=== PATIENT | male | born 1975 | race Caucasian/White ===

== ENCOUNTER 2020-11-11 16:25 | Inpatient (IN) | payer SELFPAY ==
[~2020-11-11] VITALS: Ht 167.6 cm; Wt 71.3 kg
[2020-11-11 16:27] VITALS: Ht 167.6 cm; Wt 71.3 kg
[2020-11-11 17:20] LABS: BASOPHIL % 0.2 % (0.2-1.5); RED CELL DISTRIBUTION WIDTH 14.1 % (12.1-16.2)
[2020-11-11 17:26] LABS: PLATELET COUNT 522 x10^3mcL (152-348)
[2020-11-11 17:36] LABS: CALCIUM 9.3 mg/dL (8.5-10.1); CARBON DIOXIDE 28.2 mmol/L (21-32); CHLORIDE SERUM 102 mmol/L (98-107); CREATININE SERUM 0.9 mg/dL (0.7-1.3); GFR1 > 60 mL/min; GLUCOSE SERUM 113 mg/dL (74-106); POTASSIUM SERUM 4.2 mmol/L (3.5-5.1); SODIUM SERUM 141 mmol/L (136-145)
[2020-11-11 17:40] LABS: ALKALINE PHOSPHATASE 173 U/L (46-116); ALT/SGPT 380 U/L (16-63); AST/SGOT 186 U/L (15-37); LACTIC DEHYDROGENASE (LDH) 368 U/L (100-190); TOTAL PROTEIN, SERUM 8.1 g/dL (6.4-8.2)
[2020-11-11 17:41] LABS: ALBUMIN 2.7 g/dL (3.4-5.0); C REACTIVE PROTEIN 15.7 mg/dL (<=0.9)
[2020-11-11 19:39] LABS: UA SPECIFIC GRAVITY 1.025 (1.005-1.035); microscopic required? YES; urine erythrocyte NEGATIVE (NEGATIVE)
[2020-11-11 21:19] VITALS: BP 135/91
[2020-11-11 22:12] LABS: T3 TOTAL 1.3 ng/mL
[2020-11-11 22:17] LABS: FREE T4 1.27 ng/dL (0.76-1.46); FREE THYROXINE INDEX 3.4 ug/dL (1.4-4.5); T4(THYROXINE) 9.2 ug/dL (4.7-13.3)
[2020-11-11 22:18] LABS: CHOLESTEROL/HDL RATIO 6.4; MAGNESIUM 2.3 mg/dL (1.8-2.4); PHOSPHOROUS 3.3 mg/dL (2.5-4.9)
[2020-11-12 01:01] VITALS: BP 116/80
[2020-11-12 05:46] VITALS: BP 92/77
[2020-11-12 08:46] VITALS: BP 112/71
[2020-11-12 12:13] VITALS: BP 115/72
[2020-11-12 16:36] VITALS: BP 109/59
[2020-11-12 21:56] VITALS: BP 111/78
[2020-11-13 06:20] VITALS: BP 111/76
[2020-11-13 06:35] LABS: BASOPHIL % 0.3 % (0.2-1.5); RED CELL DISTRIBUTION WIDTH 13.9 % (12.1-16.2)
[2020-11-13 08:54] VITALS: BP 112/75
[2020-11-13 10:45] LABS: BILIRUBIN DIRECT 0.23 mg/dL (0.0-0.2); BILIRUBIN TOTAL 0.8 mg/dL (0.20-1.00); TOTAL PROTEIN, SERUM 7.9 g/dL (6.4-8.2)
[2020-11-13 11:01] LABS: ALBUMIN 2.8 g/dL (3.4-5.0)
[2020-11-13 12:13] VITALS: BP 109/68
[2020-11-13 13:03] LABS: PLATELET COUNT 632 x10^3mcL (152-348)
[2020-11-13 13:05] LABS: CALCIUM 9.7 mg/dL (8.5-10.1); CARBON DIOXIDE 19.6 mmol/L (21-32); CHLORIDE SERUM 104 mmol/L (98-107); CREATININE SERUM 0.9 mg/dL (0.7-1.3); GFR1 > 60 mL/min; GLUCOSE SERUM 64 mg/dL (74-106); SODIUM SERUM 144 mmol/L (136-145)
[2020-11-13 16:56] VITALS: BP 107/72
[2020-11-13 20:38] LABS: BILIRUBIN DIRECT 0.19 mg/dL (0.0-0.2); BILIRUBIN TOTAL 0.6 mg/dL (0.20-1.00); TOTAL PROTEIN, SERUM 8.1 g/dL (6.4-8.2)
[2020-11-13 20:42] LABS: ALBUMIN 2.8 g/dL (3.4-5.0)
[2020-11-13 21:12] VITALS: BP 116/81
[2020-11-14 05:50] VITALS: BP 107/69
[2020-11-14 06:25] LABS: CALCIUM 8.9 mg/dL (8.5-10.1); CARBON DIOXIDE 28.3 mmol/L (21-32); CHLORIDE SERUM 100 mmol/L (98-107); GFR1 > 60 mL/min; GLUCOSE SERUM 141 mg/dL (74-106); MAGNESIUM 2.1 mg/dL (1.8-2.4); PHOSPHOROUS 3.4 mg/dL (2.5-4.9); POTASSIUM SERUM 3.8 mmol/L (3.5-5.1); SODIUM SERUM 136 mmol/L (136-145)
[2020-11-14 06:33] LABS: BASOPHIL % 0.1 % (0.2-1.5); RED CELL DISTRIBUTION WIDTH 13.8 % (12.1-16.2)
[2020-11-14 09:00] VITALS: BP 113/73
[2020-11-14 13:00] VITALS: BP 123/86
[2020-11-14 13:16] LABS: PLATELET COUNT 589 x10^3mcL (152-348)
[2020-11-14 16:51] VITALS: BP 104/63
[2020-11-14 22:08] VITALS: BP 118/76
[2020-11-15 06:54] VITALS: BP 104/63
[2020-11-15 07:27] LABS: BASOPHIL % 0.1 % (0.2-1.5); RED CELL DISTRIBUTION WIDTH 13.7 % (12.1-16.2)
[2020-11-15 08:05] LABS: PLATELET COUNT 625 x10^3mcL (152-348)
[2020-11-15 08:08] VITALS: BP 106/62
[2020-11-15 08:10] LABS: CALCIUM 8.2 mg/dL (8.5-10.1); CARBON DIOXIDE 25.6 mmol/L (21-32); CHLORIDE SERUM 103 mmol/L (98-107); CREATININE SERUM 0.8 mg/dL (0.7-1.3); GFR1 > 60 mL/min; GLUCOSE SERUM 93 mg/dL (74-106); MAGNESIUM 2.1 mg/dL (1.8-2.4); PHOSPHOROUS 3.1 mg/dL (2.5-4.9); SODIUM SERUM 138 mmol/L (136-145)
[2020-11-15 08:21] LABS: BILIRUBIN DIRECT 0.2 mg/dL (0.0-0.2); BILIRUBIN TOTAL 0.55 mg/dL (0.20-1.00); C REACTIVE PROTEIN 2.1 mg/dL (<=0.9); TOTAL PROTEIN, SERUM 6.4 g/dL (6.4-8.2)
[2020-11-15 09:05] LABS: ALBUMIN 2.6 g/dL (3.4-5.0)
[2020-11-15 12:27] VITALS: BP 101/64
[2020-11-15 21:28] VITALS: BP 107/74
[2020-11-16 06:11] VITALS: BP 102/65
[2020-11-16 10:19] VITALS: BP 108/77
[2020-11-16 12:13] VITALS: BP 120/78
[2020-11-16 17:29] VITALS: BP 102/65
[2020-11-16 22:06] VITALS: BP 101/64
[2020-11-17 06:38] VITALS: BP 107/67
[2020-11-17 07:49] LABS: RED CELL DISTRIBUTION WIDTH 14.1 % (12.1-16.2)
[2020-11-17 09:00] VITALS: BP 111/71
[2020-11-17 09:16] LABS: CALCIUM 8.9 mg/dL (8.5-10.1); CARBON DIOXIDE 28.7 mmol/L (21-32); CHLORIDE SERUM 101 mmol/L (98-107); CREATININE SERUM 0.9 mg/dL (0.7-1.3); GFR1 > 60 mL/min; GLUCOSE SERUM 86 mg/dL (74-106); MAGNESIUM 2.2 mg/dL (1.8-2.4); PHOSPHOROUS 3.3 mg/dL (2.5-4.9); POTASSIUM SERUM 3.8 mmol/L (3.5-5.1); SODIUM SERUM 138 mmol/L (136-145)
[2020-11-17 12:13] LABS: MONOCYTE 5 % (0-7); SEGMENTED NEUTROPHILS 73 % (37-75)
[2020-11-17 12:14] LABS: rbc morphology (normal/abnorm) NORMAL (NORMAL)
[2020-11-17 12:46] VITALS: BP 98/67
[2020-11-17 15:14] LABS: PLATELET COUNT 658 x10^3mcL (152-348)
[2020-11-17 17:49] VITALS: BP 103/67
[2020-11-17 21:43] VITALS: BP 107/67
[2020-11-18 06:26] VITALS: BP 96/57
[2020-11-18 08:23] LABS: RED CELL DISTRIBUTION WIDTH 13.7 % (12.1-16.2)
[2020-11-18 08:43] LABS: CALCIUM 8.4 mg/dL (8.5-10.1); CARBON DIOXIDE 28.5 mmol/L (21-32); CHLORIDE SERUM 101 mmol/L (98-107); CREATININE SERUM 0.9 mg/dL (0.7-1.3); GFR1 > 60 mL/min; GLUCOSE SERUM 89 mg/dL (74-106); MAGNESIUM 2.1 mg/dL (1.8-2.4); PHOSPHOROUS 2.7 mg/dL (2.5-4.9); POTASSIUM SERUM 3.9 mmol/L (3.5-5.1); SODIUM SERUM 136 mmol/L (136-145)
[2020-11-18 10:03] VITALS: BP 110/60
[2020-11-18 12:11] VITALS: BP 105/64
[2020-11-18 14:19] LABS: PLATELET COUNT 597 x10^3mcL (152-348)
[2020-11-18 15:07] LABS: BAND NEUTROPHIL 2 % (0-10); MONOCYTE 8 % (0-7); SEGMENTED NEUTROPHILS 73 % (37-75); rbc morphology (normal/abnorm) NORMAL (NORMAL)
[2020-11-18 15:08] LABS: PLATELET MORPHOLOGY PLATELETS INCREASED
[2020-11-18 17:06] VITALS: BP 111/57
[2020-11-18 19:59] VITALS: BP 113/74
[2020-11-19 06:12] VITALS: BP 105/63
[2020-11-19 09:05] VITALS: BP 104/63
[2020-11-19 12:23] VITALS: BP 107/67
[2020-11-19 13:10] LABS: ALBUMIN 2.6 g/dL (3.4-5.0); ALKALINE PHOSPHATASE 142 U/L (46-116); ALT/SGPT 614 U/L (16-63); AST/SGOT 237 U/L (15-37); BILIRUBIN TOTAL 0.43 mg/dL (0.20-1.00); C REACTIVE PROTEIN 0.6 mg/dL (<=0.9); CALCIUM 8.3 mg/dL (8.5-10.1); CARBON DIOXIDE 27.3 mmol/L (21-32); CHLORIDE SERUM 103 mmol/L (98-107); CREATININE SERUM 0.8 mg/dL (0.7-1.3); GFR1 > 60 mL/min; GLUCOSE SERUM 105 mg/dL (74-106); LACTIC DEHYDROGENASE (LDH) 257 U/L (100-190); POTASSIUM SERUM 4.3 mmol/L (3.5-5.1); SODIUM SERUM 138 mmol/L (136-145); TOTAL PROTEIN, SERUM 6.4 g/dL (6.4-8.2)
[2020-11-19 13:11] LABS: BASOPHIL % 0.3 % (0.2-1.5); RED CELL DISTRIBUTION WIDTH 13.8 % (12.1-16.2)
[2020-11-19 13:20] LABS: PLATELET COUNT 565 x10^3mcL (152-348)
[2020-11-19 16:57] VITALS: BP 107/70
[2020-11-19 21:10] VITALS: BP 105/67
[2020-11-20 06:14] VITALS: BP 103/64
[2020-11-20 09:34] VITALS: BP 122/73
[2020-11-20 13:20] VITALS: BP 98/63
[2020-11-20 16:52] VITALS: BP 101/57
[2020-11-20 21:54] VITALS: BP 106/65
[2020-11-21 05:46] VITALS: BP 111/73
[2020-11-21 08:53] VITALS: BP 107/67
[2020-11-21 09:24] LABS: BASOPHIL % 0.6 % (0.2-1.5); RED CELL DISTRIBUTION WIDTH 14.1 % (12.1-16.2)
[2020-11-21 09:50] LABS: ALBUMIN 2.7 g/dL (3.4-5.0); ALKALINE PHOSPHATASE 130 U/L (46-116); ALT/SGPT 678 U/L (16-63); AST/SGOT 158 U/L (15-37); BILIRUBIN TOTAL 0.53 mg/dL (0.20-1.00); CALCIUM 8.8 mg/dL (8.5-10.1); CARBON DIOXIDE 26.9 mmol/L (21-32); CHLORIDE SERUM 105 mmol/L (98-107); CREATININE SERUM 0.8 mg/dL (0.7-1.3); GFR1 > 60 mL/min; GLUCOSE SERUM 96 mg/dL (74-106); MAGNESIUM 2.1 mg/dL (1.8-2.4); PHOSPHOROUS 3.2 mg/dL (2.5-4.9); POTASSIUM SERUM 3.9 mmol/L (3.5-5.1); SODIUM SERUM 140 mmol/L (136-145); TOTAL PROTEIN, SERUM 6.6 g/dL (6.4-8.2)
[2020-11-21 10:52] LABS: PLATELET COUNT 559 x10^3mcL (152-348)
[2020-11-21 12:30] VITALS: BP 113/67
== END 2020-11-21 14:00 | disposition home or self-care (01) | DRG 177 ==
LOC: ED 16:25 → DU 20:25
PROVIDERS: Emergency Medicine; Internal Medicine; ADMIT Family Medicine; ATTEND Family Medicine
PROC: XW13325 Transfusion of Convalescent Plasma (Nonautologous) into Peripheral Vein, Percutaneous Approach, New Technology Group 5 (ICD-10-PCS; principal; 2020-11-13)
DX: U07.1 COVID-19 (principal); J12.89 Other viral pneumonia; E43 Unspecified severe protein-calorie malnutrition; J96.01 Acute respiratory failure with hypoxia; F10.99 Alcohol use, unspecified with unspecified alcohol-induced disorder; D68.59 Other primary thrombophilia; R74.01 Elevation of levels of liver transaminase levels; D47.3 Essential (hemorrhagic) thrombocythemia
CPT/HCPCS: 36600; 83880; 84439; 85378; 87804; 90658; G0378; J0456; J0696; J1100; J1644; J1650; J1940; J3535; J7050; J7060; Q0163; U0003